=== PATIENT | female | born 1990 | race Caucasian/White ===

== ENCOUNTER 2024-03-16 12:46 | Emergency (ER) | payer MEDICAID ==
[~2024-03-16] VITALS: Ht 157.5 cm; Wt 85.9 kg
[2024-03-16 12:50] VITALS: TEMP 98.6
[2024-03-16] MEDS ORDERED: BUPR100S SQ (12:55)
[2024-03-16] MEDS ORDERED: CEPH-558 PO (17:38)
[2024-03-16 17:45] VITALS: BP 125/75; PULSE 75; RESP 16; O2SAT 99
== END 2024-03-16 18:30 | disposition home or self-care (01) ==
LOC: EMS 12:46
DX: R19.00 Intra-abdominal and pelvic swelling, mass and lump, unspecified site (principal)
CPT/HCPCS: 99281; 99283

== ENCOUNTER 2024-12-29 21:19 | Emergency (ER) | payer MEDICAID, OTHER ==
[~2024-12-29] VITALS: Ht 157.5 cm; Wt 90.9 kg
[~2024-12-29 21:19] MED LIST: BUPR100S SQ; CEPH-558 PO
[2024-12-29] MEDS: BENZONATATE 100 MG CAPSULE PO ONE (23:01)
[2024-12-29] MEDS: ACETAMINOPHEN 500 MG TABLET PO ONE (23:01)
[2024-12-29] MEDS: IBUPROFEN 400 MG TABLET PO ONE (23:02)
[2024-12-29 23:05] LABS: COVID AG,FIA SOURCE NASAL SWAB; SARS-COV2 (COVID) ANTIGEN,FIA Negative (Negative)
[2024-12-29 23:07] LABS: INFLUENZA TYPE A NEGATIVE FOR TYPE A (NEGATIVE); INFLUENZA TYPE B NEGATIVE FOR TYPE B (NEGATIVE)
[2024-12-29 23:08] LABS: PLATELET COUNT (AUTO) 249 K/uL (150-450); RED BLOOD CELL COUNT(AUTO) 4.47 MIL/uL (4.00-5.20); RED CELL DISTRIBUTION WIDTH 12.9 % (11.5-14.5); WHITE BLOOD COUNT (AUTO) 7.1 K/uL (4.5-11.0)
[2024-12-29 23:26] LABS: CALCIUM, TOTAL 8.7 mg/dL (8.8-10.5); CREATININE 0.50 mg/dL (0.60-1.30); GLOMERULAR FILTR. RATE CALC > 60 mL/min (>60); GLUCOSE,RANDOM 147 mg/dL (70-110); SODIUM SERUM 139 mmol/L (136-145); UREA NITROGEN, BLOOD 9 mg/dL (7-18)
[2024-12-30] MEDS ORDERED: IOHEXOL 350 MG/ML 100 ML VIAL ONE (00:29)
[2024-12-30] MEDS ORDERED: SODIUM CHLORIDE 0.9% 100 ML ONE (00:29)
[2024-12-30 00:30] VITALS: TEMP 97.3
[2024-12-30 03:51] VITALS: BP 133/74; PULSE 74; RESP 18; O2SAT 99
== END 2024-12-30 03:30 ==
LOC: EMS 21:19
DX: J06.9 Acute upper respiratory infection, unspecified (principal); B97.89 Other viral agents as the cause of diseases classified elsewhere; R07.89 Other chest pain; Z20.822 Contact with and (suspected) exposure to COVID-19
CPT/HCPCS: 99285; 87426; 80048; 84703; 85025; 85379; 87804; 36415; 93005; 71275; Q9967; J7050